=== PATIENT | female | born 1990 | race Caucasian/White ===

== ENCOUNTER 2018-09-28 12:39 | Emergency (ER) | payer OTHER, MEDICAID ==
[~2018-09-28] VITALS: Ht 160 cm; Wt 43.1 kg
--- NOTE | 2018-09-28 12:50 | NUR ---
PT [id number] & [employer] OFFICERS FOR HEROIN USE, PT AAOX4, AWAKE, APPEARS NON-LETHARGIC, RESPIRATIONS EVEN AND UNLABORED, NO SOB, NAD NOTED, VSS, PT ON MONITOR, PENDING MD GUADARRAMA
--- NOTE | 2018-09-28 13:23 | NUR ---
PT AMBULATORY WITH STEADY GAIT, PT WAS ABLE TO WALK TO NURSING STATION WITHOUT ASSISTANCE
--- NOTE | 2018-09-28 14:05 | NUR ---
PT IS READY TO BE D/C, CALLED FATHER, ETA 25MINS
--- NOTE | 2018-09-28 14:30 | NUR ---
Patient discharged to home in stable condition. Written and verbal after care instructions given. Patient verbalizes understanding of instruction. Pt was picked up by dad via private car
[2018-09-28 14:32] VITALS: BP 130/90
== END 2018-09-28 14:32 | disposition home or self-care (01) ==
LOC: ER 12:43
DX: F11.10 Opioid abuse, uncomplicated (principal); F15.10 Other stimulant abuse, uncomplicated; F41.9 Anxiety disorder, unspecified; F32.9 Major depressive disorder, single episode, unspecified; G40.909 Epilepsy, unspecified, not intractable, without status epilepticus; Z86.73 Personal history of transient ischemic attack (TIA), and cerebral infarction without residual deficits
CPT/HCPCS: 99283; A4606; Z7610